=== PATIENT | female | born 1995 | race Caucasian/White ===

== ENCOUNTER 2019-11-29 19:32 | Emergency (ER) | payer BC, SELFPAY ==
--- NOTE | ~2019-11-29 | XR_ITS ---
EXAMINATION: XR chest 2V 11/29/2019 20:52 INDICATION: Chest pain PROCEDURE: 2 view chest COMPARISON: No prior studies for comparison. FINDINGS: The lungs are clear. The cardiomediastinal silhouette is within normal limits. There are no pleural effusions. There is no pneumothorax suspected. IMPRESSION: 1: NO ACUTE CARDIOPULMONARY DISEASE. Reviewed, dictated and finalized at location A. SSRS DEVELOPER
--- NOTE | ~2019-11-29 | NM_ITS ---
NM lung vent and perfusion INDICATION: Shortness of breath. Elevated d-dimer. TECHNIQUE: The patient inhaled aerosolized 8.5 mCi xenon-133. Following ventilation scan, 5.3 mCi Tc 99m MAA was injected intravenously for perfusion images. Multiple images were then acquired. COMPARISON: Chest x-ray dated 11/29/2019 FINDINGS: The comparison chest radiograph demonstrates no pulmonary infiltrates or pleural fluid. Th e perfusion scan is normal. The aerosol in images show uniform deposition throughout the lungs. IMPRESSION: 1: Normal ventilation and perfusion images. Reviewed, dictated and finalized at location A. FILLER
[2019-11-29 19:41] VITALS: BP 124/81; PULSE 76; RESP 11; TEMP 36.8; O2SAT 100
[2019-11-29 19:56] VITALS: PULSE 70
--- NOTE | 2019-11-29 20:07 | ECG_ITS ---
Measurements Intervals Burns Rate: 72 P: 18 CT: 147 QRS: 9 QRSD: 101 T: 12 QT: 381 QTc: 418 Interpretive Statements SINUS RHYTHM WITH SINUS ARRHYTHMIA DELAYED PRECORDIAL R/S TRANSITION BORDERLINE ECG Electronically Signed On 11-30-2019 6:57:08 INKER MACHINE by Keven Moran D.O.
--- NOTE | 2019-11-29 20:26 | ED.CHESTPAIN ---
HPI - Chest Pain General Chief Complaint: Chest Pain Stated Complaint: chest pain Time Seen by Provider: 11/29/19 20:09 Source: patient and RN notes reviewed Mode of arrival: ambulatory Limitations: no limitations History of Present Illness HPI narrative: Pt is a 24 y/o female who presents to the ED with c/o rt sided chest pain starting 3 days ago. She describes her pain as a tightness, and notes that her pain is aggravated with taking a deep breath. Pt also reports intermittent SOB and headache accompanying her pain, but denies any cough, fever, chills, ABD pain, nausea, or vomiting. MD complaint: chest pain Onset (ago): day(s) (3) Pain location: right chest Quality: tightness Exacerbating factors: other (deep breathing) Associated symptoms: dyspnea and other (headache) Related Data Allergies Allergy/AdvReac Type Severity Reaction Status Date / Time shellfish derived Allergy Unknown Unknown Verified 11/29/19 19:56 iohexol Allergy Unknown Verified 11/29/19 19:56 [From contrast - CT, X-RAY] Review of Systems Review of Systems: All systems reviewed & are unremarkable except as noted in HPI and below Constitutional: Constitutional: Denies chills, Denies fever(s) and Reports headache(s) Cardiovascular: Cardiovascular: Reports chest pain (rt sided chest tightness) Respiratory: Respiratory: Denies cough and Reports dyspnea Gastrointestinal: Gastrointestinal: Denies abdominal pain, Denies nausea and Denies vomiting PMFSH Past Medical History Medical History Healthy female adult Surgical History Surgical History No significant past surgical history Family History Family History (Updated 06/08/14 @ 07:13 by DOCTOR UNKNOWN) Mother Depression Grandparent Diabetes mellitus Social History Social History Smoking status: Never smoker Alcohol intake: never Exam Const: General: cooperative, healthy appearing, comfortable, no acute distress, well developed, alert and awake; No confusion Nutritional Appearance: obese Orientation/consciousness: oriented to person, oriented to place, oriented to time, patient oriented x3 and No confusion Limitations: no limitations Chest: Chest palpation & inspection: normal inspection of the chest Resp: Effort & Inspection: normal respiratory effort, able to speak in complete sentences, no respiratory distress and not tachypneic Auscultation: clear to auscultation bilaterally, no crackles, no rales, no rhonchi and no wheezes Cardio: Rate: regular rate Rhythm: regular rhythm GI: Inspection: normal to inspection GI Palp: No abdominal tenderness, Yes Soft to palpation, No Tenderness to palpation present (GI), No Guarding due to palpation present (GI), No Rigid due to palpation and No Rebound tenderness present Auscultation: normal bowel sounds Skin: General skin exam: normal color, no rashes or lesions noted, elasticity normal and turgor normal Neuro: General: oriented to person, oriented to place, oriented to time, patient oriented x3, tone normal, moves all extremities, Normal light touch and pain sensation, no meningeal signs, no focal motor deficits, CN's II-XI intact bilaterally and No confusion Cranial nerves: Yes Equal, round and reactive pupils present Speech: No Abnormal speech present Sensory Exam: No Sensory deficit (Neuro) Extrem: General: normal to inspection, full ROM and capillary refill normal Psych: Appearance: grossly normal and well kempt Mental Status: mental status grossly normal Speech and movement: Normal speech and movement present Affect: normal affect Attitude: cooperative Thought process: Normal thought process present Thought content: Yes Normal thought content present Insight: Good insight present (Psych) Judgement: Good judgement present (Psych) Course Vital Signs Vital signs: Vital Signs
[2019-11-29 20:45] VITALS: BP 142/85; PULSE 70; RESP 18; O2SAT 100
[2019-11-29 20:56] LABS: Basophils Percent Auto 0.1 % (0.2-1.2); Eosinophils Absolute Auto 0.1 K/mm3 (0-0.3); Eosinophils Percent Auto 0.6 % (0-4.4); Hematocrit 39.4 % (37.0-47.0); Hemoglobin 12.8 g/dL (12.0-15.0); Immature Granulocyte Absolute 0.02 K/mm3 (0.00-0.031); Immature Granulocyte Percent A 0.2 % (0-0.5); Lymphocytes Absolute Auto 2.91 K/mm3 (0.9-3.2); Lymphocytes Percent Auto 28.9 % (18.3-44.2); Mean Corpuscular HGB Conc 32.5 g/dl (32-36); Mean Corpuscular Hemoglobin 28.8 pg (26-34); Mean Corpuscular Volume 88.5 fl (80-100); Mean Platelet Volume 9.4 fl (7.4-10.4); Monocytes Absolute Auto 0.5 K/mm3 (0.1-0.6); Monocytes Percent Auto 4.8 % (2.6-8.5); Neutrophils Absolute Auto 6.6 K/mm3 (1.3-6.7); Neutrophils Percent Auto 65.4 % (45.5-73.1); Platelet Count Result 316 k/mm3 (150-375); Red Blood Count 4.45 M/mm3 (4.2-5.4); Red Cell Distribution Width 12.2 % (11.5-14.5); White Blood Count 10.1 K/mm3 (4.5-10.0)
[2019-11-29 21:06] LABS: Partial Thromboplastin Time 28.6 SECONDS (22.3-36.8); Prothrombin Time 12.4 Seconds (11.1-14.7)
[2019-11-29 21:08] LABS: Blood Urea Nitrogen 10 mg/dL (7-17); Calcium 9.5 mg/dL (8.4-10.2); Carbon Dioxide 25 mmol/L (22-30); Chloride 99 mmol/L (98-107); Estimated CRCL calculation 129 ml/min; Estimated Glomerular Filt Rate > 60; Glucose 82 mg/dL (65-105); Potassium 3.7 mmol/L (3.4-5.0); Sodium 138 mmol/L (137-145)
[2019-11-29 21:18] LABS: Troponin I < 0.012 ng/mL (0.000-0.034)
--- NOTE | 2019-11-29 21:19 | PC.NURSE ---
Per EDP Evelina, no dose of Aspirin needed.
[2019-11-29 21:35] LABS: D Dimer 0.51 ug/mL (<0.48)
[2019-11-29 22:31] VITALS: BP 127/71; PULSE 70; RESP 16; O2SAT 99
[2019-11-29 23:58] LABS: Troponin I < 0.012 ng/mL (0.000-0.034)
[2019-11-30 00:14] VITALS: BP 139/76; PULSE 68; RESP 16; O2SAT 99
[2019-11-30 01:08] VITALS: BP 128/64; PULSE 69; RESP 17; TEMP 36.4; O2SAT 100
== END 2019-11-30 01:11 | disposition home or self-care (01) ==
PROVIDERS: General Practice; Emergency Provider Emergency Medicine
DX: R09.1 Pleurisy (principal)
CPT/HCPCS: 36415; 71046; 78582; 80048; 81025; 84484; 85025; 85380; 85610; 85730; 93005; 99284; A9540; A9558

== ENCOUNTER 2022-01-28 08:06 | Emergency (ER) | payer OTHER, SELFPAY ==
--- NOTE | 2022-01-28 08:08 | ED.SKABFB ---
HPI - Skin/Abscess/Foreign Bdy General Chief complaint: Skin/Abscess/Foreign Body Stated complaint: rash Time Seen by Provider: 01/28/22 08:15 Source: patient, RN notes reviewed and old records reviewed Mode of arrival: ambulatory Limitations: no limitations History of Present Illness HPI narrative: 26 yo female who is 27 weeks . Presents to the [facility] with a rash under the right breast for the last 2 to 3 days. Has been washing and drying. States that she is with no complications at this time. No concerns about issues. Feeling the baby move. Patient states that she has been sweating a lot more and noticed this irritation that she describes as burning. MD complaint: rash Related Data Home Medications Medication Instructions Recorded Confirmed escitalopram oxalate 20 mg DIRECTED 01/28/22 01/28/22 Allergies Allergy/AdvReac Type Severity Reaction Status Date / Time shellfish derived Allergy Unknown Unknown Verified 11/29/19 19:56 iohexol Allergy Unknown Verified 11/29/19 19:56 [From contrast - CT, X-RAY] Review of Systems Review of Systems: All systems reviewed & are unremarkable except as noted in HPI and below Constitutional: Constitutional: Reports no additional constitutional complaints, Denies chills, Denies fever(s), Denies headache(s) and Denies weakness Eyes: Eyes: Reports no additional eye complaints and Denies change in vision ENT: Reports system reviewed and no additional complaints, except as documented, Denies dysphagia, Denies dizziness, Denies headache(s), Denies nasal congestion and Denies sore throat Cardiovascular: Cardiovascular: Reports no additional cardiovascular complaints, Denies chest pain, Denies syncope and Denies dyspnea Respiratory: Respiratory: Reports no additional respiratory complaints, Denies chest congestion, Denies cough, Denies dyspnea and Denies wheezing Gastrointestinal: Gastrointestinal: Denies dysphagia Musculoskeletal: Musculoskeletal: Reports no additional musculoskeletal complaints and Denies numbness Integumentary/Breasts: Skin/Breast: Reports as per HPI and Reports rash (Under left breast) Neurologic: Reports system reviewed and no additional complaints, except as documented, Denies dizziness, Denies syncope, Denies headache(s), Denies focal weakness, Denies numbness and Denies weakness Psychiatric: Psychiatric: Reports no additional psychiatric complaints Allergic/Immunologic: Allergic/Immunologic: Reports no additional allergic/immunologic complaints PMFSH Past Medical History Medical History (Updated 01/28/22 @ 08:20 by Sonia Bergeron APRN) Healthy female adult Surgical History Surgical History No significant past surgical history Family History Family History Mother Depression Grandparent Diabetes mellitus Social History Social History Smoking status: Never smoker Alcohol intake: never Comments At the time of my signature, I reviewed and agree with the nursing past medical, surgical, social, and family history. There is no relevant family history pertinent to the patient complaint. Exam Const: General: healthy appearing, no acute distress and alert Nutritional Appearance: well nourished and obese Orientation/consciousness: patient oriented x3 Limitations: no limitations HENMT: Head: normal to inspection Ears: external ears normal Eyes: Pupils: Equal, round and reactive pupils present Neck: Neck: normal visual inspection, no lymphadenopathy and no meningeal signs Chest: Chest palpation & inspection: normal inspection of the chest Resp: Effort & Inspection: normal respiratory effort Auscultation: clear to auscultation bilaterally Cardio: Rate: regular rate Rhythm: regular rhythm Skin: General skin exam: normal color Rashes:
[2022-01-28 08:15] VITALS: BP 129/78; PULSE 78; RESP 16; TEMP 36.4; O2SAT 99
[2022-01-28 08:19] VITALS: BP 129/78; PULSE 78; RESP 16; TEMP 36.4; O2SAT 99
== END 2022-01-28 08:25 | disposition home or self-care (01) ==
PROVIDERS: Emergency Provider Nurse Practitioner
DX: O99.712 Diseases of the skin and subcutaneous tissue complicating pregnancy, second trimester (principal); Z3A.27 27 weeks gestation of pregnancy; B37.2 Candidiasis of skin and nail; O99.342 Other mental disorders complicating pregnancy, second trimester; F32.A Depression, unspecified
CPT/HCPCS: 99213; G0463

== ENCOUNTER 2022-03-26 09:42 | Outpatient (RCR) | payer OTHER, SELFPAY ==
--- NOTE | ~2022-03-26 | US_ITS ---
EXAMINATION: US OB BPP wo non-stress DATE: 03/26/2022 10:59 INDICATION: Abnormal biophysical profile. Third trimester. TECHNIQUE: Real-time pelvic ultrasound was performed. COMPARISON: None. FINDINGS: There is a single living fetus in vertex presentation. The placenta is posterior. heart rate i s 146 beats per minute (bpm). The amniotic fluid index is 27.5 cm, which is high (95th percentile is 24.9 cm). Biophysical profile performed by the technologist: breathing (30 sec sustained breathing in 30 minutes): 2 out of 2 movement (3 gross body movements in 30 minutes): 2 out of 2 tone (one episode of qfbzeca-bybwbeqze-nlswsok limb movement): 2 out of 2 Amniotic fluid pocket (2 cm): 2 out of 2 Total score: 8 out of 8 IMPRESSION: 1. Single living fetus in vertex presentation. 2. Biophysical profile 8 out of 8. 3. Polyhydramnios. Reviewed, dictated and finalized at location B.
[2022-03-26 10:58] VITALS: BP 131/80; PULSE 72
== END 2022-04-24 07:13 | disposition home or self-care (01) ==
LOC: ANHOBOP 09:42
PROVIDERS: Visit Provider Advanced Practice Midwife
DX: O26.03 Excessive weight gain in pregnancy, third trimester (principal); O40.3XX0 Polyhydramnios, third trimester, not applicable or unspecified; Z3A.35 35 weeks gestation of pregnancy
CPT/HCPCS: 59025; 76819

== ENCOUNTER 2022-04-03 14:30 | Outpatient (CLI) | payer OTHER, SELFPAY ==
[2022-04-03] VITALS (21 sets, daily range): BP systolic 121–141; BP diastolic 75–83; PULSE 64–94; O2SAT 96–99
[2022-04-03 15:12] LABS: Basophils Percent Auto 0.2 % (0.2-1.2); Eosinophils Absolute Auto 0.1 K/mm3 (0-0.3); Eosinophils Percent Auto 0.6 % (0-4.4); Hematocrit 33.4 % (37.0-47.0); Hemoglobin 11.2 g/dL (12.0-15.0); Immature Granulocyte Absolute 0.05 K/mm3 (0.00-0.031); Immature Granulocyte Percent A 0.5 % (0-0.5); Lymphocytes Absolute Auto 2.42 K/mm3 (0.9-3.2); Mean Corpuscular HGB Conc 33.5 g/dl (32-36); Mean Corpuscular Hemoglobin 30.9 pg (26-34); Mean Corpuscular Volume 92.3 fl (80-100); Monocytes Absolute Auto 0.8 K/mm3 (0.1-0.6); Monocytes Percent Auto 6.8 % (2.6-8.5); Neutrophils Absolute Auto 7.7 K/mm3 (1.3-6.7); Neutrophils Percent Auto 69.9 % (45.5-73.1); Platelet Count Result 230 k/mm3 (150-375); Red Blood Count 3.62 M/mm3 (4.2-5.4); Red Cell Distribution Width 12.9 % (11.5-14.5)
[2022-04-03 15:25] LABS: Alanine Aminotransferase 13 U/L (6-35); Alkaline Phosphatase 149 U/L (38-126); Anion Gap 6 mmol/L (8-16); Aspartate Amino Transferase 17 U/L (14-36); Bilirubin,Total < 0.1 mg/dL (0.2-1.3); Blood Urea Nitrogen 4 mg/dL (7-17); Calcium 8.4 mg/dL (8.4-10.2); Carbon Dioxide 22 mmol/L (22-30); Chloride 108 mmol/L (98-107); Estimated Glomerular Filt Rate > 60; Glucose 91 mg/dL (65-110); Potassium 3.2 mmol/L (3.4-5.0); Sodium 136 mmol/L (137-145); Uric Acid 3.9 mg/dL (2.5-7.5)
[2022-04-03 16:05] LABS: Creatinine Urine 78.7 mg/dL; Total Protein Urine Random 14 mg/dL; Ur Ttl Prot Creatinine Ratio 0.18 mg/mg (0-0.20)
[2022-04-03 16:14] LABS: Add Urine Microscopic? YES; Appearance Urine Clear (Clear); Bilirubin Urine Negative (Negative); Blood Urine Negative (Negative); Color Urine Yellow (Yellow); Glucose Urine UA Negative (Negative); Ketones Urine Negative (Negative); Leukocyte Esterase Ur Trace LEU/UL (NEGATIVE); Nitrate Urine Negative (Negative); Protein Urine Negative (Negative); Specific Grav Ur 1.015 (1.001-1.035); Urobilinogen Urine 0.2 mg/dL (<2.0)
[2022-04-03 16:19] LABS: Bacteria Urine Trace /hpf; Mucus Urine Rare /lpf; RBC Urine 0-2 /hpf (0-2); Squamous Epithelial Cell Urine Many /hpf (Few); WBC Urine 0-3 /hpf (0-3)
--- NOTE | 2022-04-03 16:32 | PC.NURSE ---
Dr Hester notified of adm c/o of headache, lab results, bp's and reactive tracing with one small vaiable decels noted and tracing reactive after that. Ok to dc home with precautions.
== END 2022-04-03 16:37 | disposition home or self-care (01) ==
LOC: ANHOBOP 14:35 → ANHOBPP 14:36
PROVIDERS: Obstetrics & Gynecology; Visit Provider Obstetrics & Gynecology
DX: O13.9 Gestational [pregnancy-induced] hypertension without significant proteinuria, unspecified trimester (principal); Z3A.00 Weeks of gestation of pregnancy not specified
CPT/HCPCS: 36415; 59025; 80053; 81001; 82570; 84156; 84550; 85025; 87086; 87088; 87147; 99199

== ENCOUNTER 2022-04-09 09:56 | Inpatient (IN) | payer OTHER, SELFPAY ==
[2022-04-09] VITALS (69 sets, daily range): BP systolic 115–160; BP diastolic 65–108; PULSE 61–99; RESP 12–18; TEMP 36.2–36.9; O2SAT 97–100; BMI 50.5
--- NOTE | ~2022-04-09 | US_ITS ---
EXAMINATION: US OB limited w BPP DATE: 04/09/2022 12:40 INDICATION: Hypertension, third trimester TECHNIQUE: Real-time pelvic ultrasound was performed. The interpreting radiologist was not present fo r the study. COMPARISON: None. FINDINGS: There is a single living fetus in vertex presentation. The placenta is posterior. heart rate is 137 beats per minute (bpm). The amniotic fluid index is 28.5 cm high (normal range: 7.5 cm to 24.4 c m). Biophysical profile performed by the technologist: breathing (30 sec sustained breathing in 30 minutes): 2 out of 2 movement (3 gross body movements in 30 minutes): 2 out of 2 tone (one episode of smxuazq-dgzjpusvt-rsebvbx limb movement): 2 out of 2 Amniotic fluid pocket (2 cm): 2 out of 2 Total score: 8 out of 8 IMPRESSION: 1. Single living fetus in vertex presentation. 2. Biophysical profile 8 out of 8. 3. Polyhydramnios. Reviewed, dictated and finalized at location A.
[2022-04-09 11:17] LABS: Basophils Percent Auto 0.1 % (0.2-1.2); Eosinophils Percent Auto 0.3 % (0-4.4); Hematocrit 36.3 % (37.0-47.0); Hemoglobin 12.3 g/dL (12.0-15.0); Immature Granulocyte Absolute 0.08 K/mm3 (0.00-0.031); Immature Granulocyte Percent A 0.6 % (0-0.5); Lymphocytes Absolute Auto 2.61 K/mm3 (0.9-3.2); Lymphocytes Percent Auto 20.4 % (18.3-44.2); Mean Corpuscular HGB Conc 33.9 g/dl (32-36); Mean Corpuscular Hemoglobin 30.8 pg (26-34); Mean Corpuscular Volume 90.8 fl (80-100); Mean Platelet Volume 11.2 fl (7.4-10.4); Monocytes Absolute Auto 0.9 K/mm3 (0.1-0.6); Monocytes Percent Auto 6.7 % (2.6-8.5); Neutrophils Absolute Auto 9.2 K/mm3 (1.3-6.7); Neutrophils Percent Auto 71.9 % (45.5-73.1); Platelet Count Result 263 k/mm3 (150-375); Red Cell Distribution Width 12.6 % (11.5-14.5); White Blood Count 12.8 K/mm3 (4.5-10.0)
[2022-04-09 11:19] LABS: Appearance Urine Clear (Clear); Bilirubin Urine Negative (Negative); Blood Urine Negative (Negative); Color Urine Yellow (Yellow); Glucose Urine UA Negative (Negative); Ketones Urine Negative (Negative); Leukocyte Esterase Ur Negative LEU/UL (Negative); Nitrate Urine Negative (Negative); Protein Urine Negative (Negative); Specific Grav Ur 1.015 (1.001-1.035); Urobilinogen Urine 0.2 mg/dL (<2.0)
[2022-04-09 11:20] LABS: Add Urine Microscopic? NO
[2022-04-09 11:24] LABS: Alanine Aminotransferase 14 U/L (6-35); Albumin Level 3.3 g/dL (3.5-5.1); Alkaline Phosphatase 178 U/L (38-126); Anion Gap 5 mmol/L (8-16); Aspartate Amino Transferase 23 U/L (14-36); Bilirubin,Total 0.2 mg/dL (0.2-1.3); Blood Urea Nitrogen 6 mg/dL (7-17); Carbon Dioxide 24 mmol/L (22-30); Chloride 105 mmol/L (98-107); Estimated Glomerular Filt Rate > 60; Glucose 95 mg/dL (65-110); Potassium 4.1 mmol/L (3.4-5.0); Sodium 134 mmol/L (137-145); Uric Acid 4.1 mg/dL (2.5-7.5)
[2022-04-09 11:30] LABS: Creatinine Urine 79.7 mg/dL; Total Protein Urine Random 17 mg/dL; Ur Ttl Prot Creatinine Ratio 0.21 mg/mg (0-0.20)
--- NOTE | 2022-04-09 11:58 | PC.NURSE ---
Mitchell HODGEM informed of BP's, lab results, Reactive NST with 2 small variable decels down to 110 noted. Order for BPP and ANDREY received.
--- NOTE | 2022-04-09 12:24 | PC.NURSE ---
Pt to U/S per wheelchair.
--- NOTE | 2022-04-09 12:50 | PC.NURSE ---
Pt back from U/S. BPP 05/19. monitor reapplied.
--- NOTE | 2022-04-09 12:55 | PC.NURSE ---
Mitchell HODGEM on unit and updated on BP's. BPP 05/19 and ANDREY 28.5cm. BP's printed out for CNM to take to office to discuss with Dr. Carranza.
--- NOTE | 2022-04-09 13:24 | PC.NURSE ---
Dr. Carranza called to inform us she would like to deliver pt today at 1630 due to elevated BP's at 37 wks gestation and active herpes outbreak. Anesthesia and other personnel informed.
--- NOTE | 2022-04-09 13:35 | PC.NURSE ---
Report given to Viviana Fisher RN and Cristofer Higuera RN.
--- NOTE | 2022-04-09 14:06 | WPDANESEPP ---
Anes - Eval Pre Procedure Procedure: Operation Date: 04/09/22 16:30 Proposed Procedures p Section - Maryam Carranza MD Date/Time: 04/09/22 14:06 Pre Op Diagnosis: nst,bpp,pih labs Patient Data Age: 26 Gender: F Height: 1.7 m Weight: 146.51 kg Last Vital Signs Pulse 90 04/09/22 14:00 BP 131/83 04/09/22 14:00 Allergies Allergy/AdvReac Type Severity Reaction Status Date / Time shellfish derived Allergy Unknown Difficulty Verified 03/31/22 13:43 Breathing iohexol Allergy Anaphylactic Verified 03/31/22 13:43 [From contrast - CT, X-RAY] Shock Home Medications Medication Instructions Recorded Confirmed Type aspirin 81 mg tablet,delayed 162 mg PO DAILY 03/31/22 03/31/22 History release (Ryan Low Dose Aspirin) docosahexaenoic acid 200 mg capsule 200 mg PO 03/31/22 History ferrous sulfate 143 mg (45 mg 143 mg PO DAILY 03/31/22 03/31/22 History iron) tablet,extended release hydroxyzine pamoate 25 mg capsule 25 mg PO BID PRN Anxiety 03/31/22 03/31/22 History (Vistaril) lansoprazole 15 mg capsule,delayed 15 mg PO DAILY 03/31/22 03/31/22 History release sertraline 150 mg capsule 150 mg PO DAILY 03/31/22 03/31/22 History Laboratory Tests 04/09/22 04/09/22 04/09/22 10:55 10:55 10:55 WBC 12.8 K/mm3 H K/mm3 (4.5-10.0) RBC 4.00 M/mm3 L M/mm3 (4.2-5.4) Hgb 12.3 g/dL g/dL (12.0-15.0) Hct 36.3 % L % (37.0-47.0) MCV 90.8 fl fl (80-100) MCH 30.8 pg pg (26-34) MCHC 33.9 g/dl g/dl (32-36) RDW 12.6 % % (11.5-14.5) Plt Count 263 k/mm3 k/mm3 (150-375) MPV 11.2 fl H fl (7.4-10.4) Immature Gran % (Auto) 0.6 % H % (0-0.5) Neut % (Auto) 71.9 % % (45.5-73.1) Lymph % (Auto) 20.4 % % (18.3-44.2) Swain % (Auto) 6.7 % % (2.6-8.5) Eos % (Auto) 0.3 % % (0-4.4) Baso % (Auto) 0.1 % L % (0.2-1.2) Lymph # (Auto) 2.61 K/mm3 K/mm3 (0.9-3.2) Swain # (Auto) 0.9 K/mm3 H K/mm3 (0.1-0.6) Eos # (Auto) 0.0 K/mm3 K/mm3 (0-0.3) Baso # (Auto) 0.0 K/mm3 K/mm3 (0.0-0.1) Abs Immat Gran (auto) 0.08 K/mm3 H K/mm3 (0.00-0.031) Absolute Neuts (auto) 9.2 K/mm3 H K/mm3 (1.3-6.7) Absolute Nucleated RBC 0.0 K/mm3 K/mm3 (0.0-0.012) Nucleated RBC % 0.0 % % (0.0-0.2) Sodium 134 mmol/L L mmol/L (137-145) Potassium 4.1 mmol/L mmol/L (3.4-5.0) Chloride 105 mmol/L mmol/L (98-107) Carbon Dioxide 24 mmol/L mmol/L (22-30) Anion Gap 5 mmol/L L mmol/L (8-16) BUN 6 mg/dL L mg/dL (7-17) Creatinine 0.70 mg/dL mg/dL (0.7-1.0) Estim Creat Clear Calc Not Reportable Estimated GFR > 60 (59 - ) Glucose 95 mg/dL mg/dL (65-110) Uric Acid 4.1 mg/dL mg/dL (2.5-7.5) Calcium 9.0 mg/dL mg/dL (8.4-10.2) Total Bilirubin 0.2 mg/dL mg/dL (0.2-1.3) AST 23 U/L U/L (14-36) ALT 14 U/L U/L (6-35) Alkaline Phosphatase 178 U/L H U/L (38-126) Total Protein 7.0 g/dL g/dL (6.3-8.2) Albumin 3.3 g/dL L g/dL (3.5-5.1) Urine Color Urine Appearance Urine pH Ur Specific Osmond Urine Protein Urine Glucose (UA) Urine Ketones Ur Blood (Man) Urine Nitrate Urine Bilirubin Urine Urobilinogen Leukocyte Esterase Rfl U Random Total Protein 17 mg/dL mg/dL Urine Creatinine 79.7 mg/dL mg/dL Protein/Creat Ratio 2 0.21 mg/mg H mg/mg (0-0.20) 04/09/22 10:55 WBC RBC Hgb Hct MCV MCH MCHC RDW Plt Count MPV Immature Gran % (Auto)
--- NOTE | 2022-04-09 14:22 | LDADM ---
This patient, Fany Merritt, was admitted to OB Post 117 on 04/09/22 at 09:56. Plans for labor, pain management and were discussed with patient. Patient/family oriented to hospital policies and general routines including ID bracelet, bed and alarms, visiting hours, pain management, procedures, bathroom and other care routines, personal items, smoking policy, room service/diet and guest tray routines, infant security routines, and visiting hours. Patient/Family are encouraged to report perceived risks to care and to ask questions if they do not understand what they are told or what they should do. See OBIX for further documentation.
[2022-04-09] MEDS: LACTATED RINGERS 1,000 ML 125 ML IV CONT (15:33)
--- NOTE | 2022-04-09 16:45 | PM.IMHP ---
H&P: HPI History of Present Illness Date/Time: 04/09/22 16:45 Chief Complaint: elevated BP, HSV outbreak Narrative: Fany is a 26yo G1 at 37.0 found to have elevated BPs in office and sent to [facility], where elevated BPs, as high as 150s/100s have continued. Denies SYLVESTER/BV/EP/ She happens to have an active HSV outbreak (not primary), on valtrex and improving. also complicated by COVID at 10w, morbid obesity, and GBS pos. Review of Systems Review of Systems: All systems reviewed & are unremarkable except as noted in HPI and below PMFSH Past Medical History Medical History (Updated 04/09/22 @ 16:47 by Maryam Carranza MD) Healthy female adult Surgical History Surgical History No significant past surgical history Family History Family History (Updated 03/31/22 @ 14:08 by Claudia Flaherty RN) Mother Diabetes mellitus Depression Schizophrenia Grandparent Diabetes mellitus Prostate carcinoma Father Diabetes mellitus Sibling H/O Romel thyroiditis Social History Social History Smoking status: Never smoker Second hand tobacco smoke exposure: No Alcohol intake: never Substance use: former Spiritual care concerns: No Meds Home Medications and Allergies Home Medications Medication Instructions Recorded Confirmed Type aspirin 81 mg tablet,delayed 162 mg PO DAILY 03/31/22 03/31/22 History release (Ryan Low Dose Aspirin) docosahexaenoic acid 200 mg capsule 200 mg PO 03/31/22 History ferrous sulfate 143 mg (45 mg 143 mg PO DAILY 03/31/22 03/31/22 History iron) tablet,extended release hydroxyzine pamoate 25 mg capsule 25 mg PO BID PRN Anxiety 03/31/22 03/31/22 History (Vistaril) lansoprazole 15 mg capsule,delayed 15 mg PO DAILY 03/31/22 03/31/22 History release sertraline 150 mg capsule 150 mg PO DAILY 03/31/22 03/31/22 History Allergies Allergy/AdvReac Type Severity Reaction Status Date / Time shellfish derived Allergy Unknown Difficulty Verified 03/31/22 13:43 Breathing iohexol Allergy Anaphylactic Verified 03/31/22 13:43 [From contrast - CT, X-RAY] Shock Vital Signs Vital Signs - 24 hr 04/09/22 10:19 04/09/22 10:30 04/09/22 10:45 Temperature Pulse Rate 94 85 89 Blood Pressure 128/92 H 125/87 151/97 H Blood Pressure [Left Arm] 04/09/22 11:00 04/09/22 11:15 04/09/22 11:30 Temperature Pulse Rate 83 83 79 Blood Pressure 131/79 130/82 115/74 Blood Pressure [Left Arm] 04/09/22 11:52 04/09/22 12:01 04/09/22 12:08 Temperature Pulse Rate 99 97 88 Blood Pressure 154/108 H 155/87 H 147/81 H Blood Pressure [Left Arm] 04/09/22 12:15 04/09/22 12:51 04/09/22 13:00 Temperature Pulse Rate 87 93 85 Blood Pressure 134/93 H 129/92 H 134/86 Blood Pressure [Left Arm] 04/09/22 13:15 04/09/22 13:30 04/09/22 14:00 Temperature Pulse Rate 84 84 90 Blood Pressure 126/81 126/84 131/83 Blood Pressure [Left Arm] 04/09/22 16:20 04/09/22 10:30 04/09/22 10:30 Temperature 97.1 F L Pulse Rate 88 82 Blood Pressure 151/98 H Blood Pressure [Left Arm] 128/92 H Exam Const: General: no acute distress Resp: Effort & Inspection: normal respiratory effort Auscultation: clear to auscultation bilaterally Cardio: Rate: regular rate Rhythm: regular rhythm GI: GI Palp: Yes Soft to palpation Extrem: General: normal to inspection H&P: Results Labs Labs: Short CBC 04/09/22 Range/Units 10:55 WBC 12.8 H (4.5-10.0) K/mm3 Hgb 12.3 (12.0-15.0) g/dL Hct 36.3 L (37.0-47.0) % Plt Count 263 (150-375) k/mm3 BMP 04/09/22 10:55 Sodium 134 L Potassium 4.1 Chloride 105 Carbon Dioxide 24 BUN 6 L Creatinine 0.70 Glucose 95 Calcium 9.0 Liver Function 04/09/22 Range/Units 10:55 Total Bilirubin 0.2 (0.2-1.3) mg/dL AST 23 (14-36) U/L ALT
[2022-04-09] MEDS: ceFAZolin 3 GM/D5W 100 ML 100 ML IVPB (16:46)
--- NOTE | 2022-04-09 16:48 | WPDHPUPDATE1 ---
History and Physical Update Update Date/Time: 04/09/22 16:48 History and Physical has been reviewed, including an updated exam of the patient. There are NO changes in the patient's condition. Risks, benefits, and alternatives have been discussed and questions answered. Patient agrees to proceed with procedure.
--- NOTE | 2022-04-09 18:01 | PM.OBPRVD ---
OB - Delivery Note Procedure Delivery date: 04/09/22 Procedure: Procedures Operation Date: 04/09/22 16:30 <No data on this case meets the specified criteria> primary low transverse section Events: Gestational Hypertension and Other (genital herpes outbreak) Route of delivery: Specimen: Yes (placenta) Quantitative Blood Loss (ml): 915 Anesthesia type: Spinal Disposition: Floor Complications: none Narrative: The patient was taken to the OR and had her epidural anesthesia dosed adequately. She was placed in dorsal supine position with left lateral tilt. SCDs and zuleta had been placed. She was prepped and draped in the normal sterile fashion. A Pfannensteil skin incision was made and carried through to the underlying layer of fascia. The fascia was incised in the midline and then extended laterally using Stevenson scissors. The muscles were in the midline and the peritoneum was entered bluntly. The peritoneal incision was extended inferiorly and superiorly with care to avoid the bladder. The bladder blade was then inserted, the vesicouterine peritoneum was grasped, incised with Metzenbaum scissors, and a bladder flap created. The bladder blade was reinserted. A low transverse uterine incision was made with a scalpel and extended bluntly. AROM was performed and fluid was noted to be clear. The head was delivered, followed by the remainder of the baby. The baby's oropharynx was suctioned. After 30 seconds, the cord was clamped and cut and the infant was handed off. Cord blood was obtained and the placenta was then removed manually. The uterus was exteriorized. A moist lap sponge was used to curette the endometrium. The uterine incision was then closed with one layer of 0-Vicryl in a running, locking fashion. Good hemostasis was noted. The posterior cul de sac was irrigated with normal saline and cleared of all clot and debris. The uterus was returned to the abdomen. Both lateral gutters were then irrigated. The rectus muscles were inspected and found to be hemostatic. The fascia was reapproximated using 0-Vicryl in running fashion. The subcutaneous tissue was irrigated with normal saline and made hemostatic with Bovie electrocautery. The subcutaneous tissue was reapproximated with a layer of running 2-0 plain gut. The skin was then closed with absorbable oscar. Steri strips and a bandage were applied. The uterus was evacuated. The patient tolerated the procedure very well. All counts were correct. She was taken to the recovery room in good condition. [place] Baby Date of : 04/09/22 Time of : 17:21 Weeks of gestation at delivery: 37 Infant gender: Male Weight (pounds): 7 Weight (ounces): 2 presentation: vertex Placenta delivery description: Manual Removal Cord Vessel Description: 3 Vessels and Delayed Cord Clamping Narrative: apgars pending per nursery
--- NOTE | 2022-04-09 18:59 | P.PNAN_ITS ---
Anes - Eval Final PreProcedure Day of Procedure 04/09/22 16:15 Patient weight: super morbidly obese Heart: regular rate and rhythm Lungs: clear to auscultation and normal air movement Airway: Mallampati scale class II Neurological: alert and oriented Last oral intake: >/= 8 hours ASA classification: III Emergent: no Anesthetic plan: proceed Anesthesia type and monitoring: regional spinal and standard monitoring Results Review: All pre-operative results and documents have been reviewed as part of the pre- operative evaluation. Informed Consent: The patient's anesthetic plan and its attendant risks and benefits were discussed with the patient/family/POA. Questions were solicited and answers provided to the satisfaction of the patient/family/POA.
[2022-04-09] MEDS: MORPHINE SULFATE INJ (*CRX) 10 MG/ML AMP 2 MG IV PUSH ×3 (19:26→20:14)
[2022-04-09] MEDS: OXYTOCIN 30 UNITS/NS 500 ML 30 UNITS/500 ML BAG 125 UNITS IV CONT (20:30)
--- NOTE | 2022-04-09 21:00 | PC.NURSE ---
Patient transferred to post room #291 per stretcher from labor and delivery. Support person present. Oriented to unit, room, information board, rooming in, admission packet and security measures. Patient verbalizes understanding.
[2022-04-09] MEDS: KETOROLAC 30 MG/ML VIAL (*BKC) (21:26)
[2022-04-10] VITALS (7 sets, daily range): BP systolic 125–164; BP diastolic 65–96; PULSE 84–107; RESP 14–20; TEMP 36.4–36.9; O2SAT 97–100
[2022-04-10 05:54] LABS: Rapid Plasma Reagin Non-Reactive (NonReactive)
[2022-04-10 06:07] LABS: Basophils Percent Auto 0.1 % (0.2-1.2); Eosinophils Percent Auto 0.3 % (0-4.4); Hematocrit 30.5 % (37.0-47.0); Hemoglobin 9.9 g/dL (12.0-15.0); Immature Granulocyte Absolute 0.07 K/mm3 (0.00-0.031); Immature Granulocyte Percent A 0.5 % (0-0.5); Lymphocytes Absolute Auto 2.45 K/mm3 (0.9-3.2); Lymphocytes Percent Auto 16.7 % (18.3-44.2); Mean Corpuscular HGB Conc 32.5 g/dl (32-36); Mean Corpuscular Hemoglobin 30.8 pg (26-34); Mean Platelet Volume 11.3 fl (7.4-10.4); Monocytes Absolute Auto 0.9 K/mm3 (0.1-0.6); Monocytes Percent Auto 5.8 % (2.6-8.5); Neutrophils Absolute Auto 11.2 K/mm3 (1.3-6.7); Neutrophils Percent Auto 76.6 % (45.5-73.1); Platelet Count Result 221 k/mm3 (150-375); Red Blood Count 3.21 M/mm3 (4.2-5.4); Red Cell Distribution Width 12.7 % (11.5-14.5); White Blood Count 14.6 K/mm3 (4.5-10.0)
[2022-04-10] MEDS: IBUPROFEN 600 MG TABLET PO ×3 (07:50→19:54)
--- NOTE | 2022-04-10 08:09 | PM.OBPNVD ---
OB - PN: Subj Subjective Date/time seen: 04/10/22 08:09 s/p primary delivery for hsv outbreak, day 1 no current complaints OB - PN: Obj Data Labs CBC & Chem 7: 04/10/22 04:47 04/09/22 10:55 Labs: Laboratory Results - last 24 hr 04/09/22 04/09/22 04/09/22 10:55 10:55 10:55 WBC 12.8 H RBC 4.00 L Hgb 12.3 Hct 36.3 L MCV 90.8 MCH 30.8 MCHC 33.9 RDW 12.6 Plt Count 263 MPV 11.2 H Immature Gran % (Auto) 0.6 H Neut % (Auto) 71.9 Lymph % (Auto) 20.4 [place] % (Auto) 6.7 Eos % (Auto) 0.3 Baso % (Auto) 0.1 L Lymph # (Auto) 2.61 [place] # (Auto) 0.9 H Eos # (Auto) 0.0 Baso # (Auto) 0.0 Abs Immat Gran (auto) 0.08 H Absolute Neuts (auto) 9.2 H Absolute Nucleated RBC 0.0 Nucleated RBC % 0.0 Sodium 134 L Potassium 4.1 Chloride 105 Carbon Dioxide 24 Anion Gap 5 L BUN 6 L Creatinine 0.70 Estim Creat Clear Calc Not Reportable Estimated GFR > 60 Glucose 95 Uric Acid 4.1 Calcium 9.0 Total Bilirubin 0.2 AST 23 ALT 14 Alkaline Phosphatase 178 H Total Protein 7.0 Albumin 3.3 L Urine Color Urine Appearance Urine pH Ur Specific [place] Urine Protein Urine Glucose (UA) Urine Ketones Ur Blood (Man) Urine Nitrate Urine Bilirubin Urine Urobilinogen Leukocyte Esterase Rfl U Random Total Protein 17 Urine Creatinine 79.7 Protein/Creat Ratio 2 0.21 H RPR Blood Type Antibody Screen 04/09/22 04/09/22 04/09/22 10:55 14:30 14:30 WBC RBC Hgb Hct MCV MCH MCHC RDW Plt Count MPV Immature Gran % (Auto) Neut % (Auto) Lymph % (Auto) [place] % (Auto) Eos % (Auto) Baso % (Auto) Lymph # (Auto) [place] # (Auto) Eos # (Auto) Baso # (Auto) Abs Immat Gran (auto) Absolute Neuts (auto) Absolute Nucleated RBC Nucleated RBC % Sodium Potassium Chloride Carbon Dioxide Anion Gap BUN Creatinine Estim Creat Clear Calc Estimated GFR Glucose Uric Acid Calcium Total Bilirubin AST ALT Alkaline Phosphatase Total Protein Albumin Urine Color Yellow Urine Appearance Clear Urine pH 7.0 Ur Specific [place] 1.015 Urine Protein Negative Urine Glucose (UA) Negative Urine Ketones Negative Ur Blood (Man) Negative Urine Nitrate Negative Urine Bilirubin Negative Urine Urobilinogen 0.2 Leukocyte Esterase Rfl Negative U Random Total Protein Urine Creatinine Protein/Creat Ratio 2 RPR Non-reactive Blood Type A Positive Antibody Screen Negative 04/10/22 04:47 WBC 14.6 H RBC 3.21 L Hgb 9.9 L Hct 30.5 L MCV 95.0 MCH 30.8 MCHC 32.5 RDW 12.7 Plt Count 221 MPV 11.3 H Immature Gran % (Auto) 0.5 Neut % (Auto) 76.6 H Lymph % (Auto) 16.7 L [place] % (Auto) 5.8 Eos % (Auto) 0.3 Baso % (Auto) 0.1 L Lymph # (Auto) 2.45 [place] # (Auto) 0.9 H Eos # (Auto) 0.0 Baso # (Auto) 0.0 Abs Immat Gran (auto) 0.07 H Absolute Neuts (auto) 11.2 H Absolute Nucleated RBC 0.0 Nucleated RBC % 0.0 Sodium Potassium Chloride Carbon Dioxide Anion Gap BUN Creatinine Estim Creat Clear Calc Estimated GFR Glucose Uric Acid Calcium Total Bilirubin AST ALT Alkaline Phosphatase Total Protein Albumin Urine Color Urine Appearance Urine pH Ur Specific [place] Urine Protein Urine Glucose (UA) Urine Ketones Ur Blood (Man) Urine Nitrate Urine Bilirubin Urine Urobilinogen Leukocyte Esterase Rfl U Random Total Protein Urine Creatinine Protein/Creat Ratio 2 RPR Blood Type Antibody Screen Imaging Radiologist's impression: Impressions Obstetrics US/Biophysical Profile 04/09/22 12:55 IMPRESSION: 1. Single living fetus in vertex presentation. 2. Biophysical profile 8 out of 8. 3. Polyh
[2022-04-10] MEDS: POLYSACCHARIDE IRON COMPLEX 150 MG CAPSULE PO ×2 (08:23→17:41)
[2022-04-10] MEDS: HYDROcodone/acetaminophen (*CRX) 5-325 MG TABLET 1 TAB PO ×4 (08:24→19:53)
[2022-04-10] MEDS: valACYclovir HCL 500 MG TABLET 1000 MG PO ×2 (08:24→21:11)
[2022-04-10] MEDS: SERTRALINE HCL 50 MG TABLET 150 MG PO (08:25)
[2022-04-10] MEDS: MULTIVIT/MIN/PREN/FOL AC/IRON TABLET 1 TAB PO (08:26)
[2022-04-10] MEDS: DOCUSATE SODIUM 100 MG CAPSULE PO ×2 (08:26→17:41)
--- NOTE | 2022-04-10 10:01 | WPDANLDPN2 ---
Anes-Prog Note L&D Date/Time: 04/10/22 10:01 Comfortable throughout: section Neuraxial method: spinal Epidural/Spinal procedure site: clean & non-tender Neuro status: Neuro function grossly intact. Cardiovascular status: normal Airway patency: baseline Vital Signs: Last Vital Signs Temp 36.9 C 04/10/22 04:45 Pulse 84 04/10/22 04:45 Resp 14 04/10/22 04:45 BP 149/87 H 04/10/22 04:45 Pulse Ox 98 04/10/22 04:45 O2 Del Method Room Air 04/09/22 20:20 Pain score (VAS): 2 I/O: Intake & Output 04/09/22 04/10/22 04/10/22 23:59 07:59 15:59 Intake Total 400 Output Total 1528 Balance -1128 Patient feedback: Patient satisfied with anesthetic care.
--- NOTE | 2022-04-10 10:02 | WPDANLDNPN2 ---
Anes-Prog Note L&D-Neuraxial Date/Time: 04/10/22 10:02 Neuraxial medications: intrathecal PF morphine Opiod-related complaints: none Patient feedback: Patient satisfied with post-operative pain management.
[2022-04-10] MEDS: SIMETHICONE 80 MG TAB.CHEW PO ×3 (13:14→19:53)
[2022-04-10] MEDS: LANOLIN (LANSINOH) 7.5 GM CREAM 1 APPLIC TOPICAL (13:14)
--- NOTE | 2022-04-10 16:37 | PC.NURSE ---
[phone] Primary RN is present in room and reports mother is on a plan. had attempted to breastfeed with a nipple shield. Mom pumped 1 ml of colostrum. At 0800 had been fed the 1 ml of colostrum and 15 mls of formula. was placed skin to skin on mom. Education reviewed for different styles of stimulating for wakefulness to breastfeed. did not demonstrate adequate feeding efforts at the breast. is sleepy and reluctant. Breast pump provided prior to RN shift due to ineffective feedings. Instructions given on cleaning, care, usage, that there should be no pain, pumping schedule for milk production, collection, and storage of human milk to mommy. Parents are encouraged to record pumping schedule on the feeding sheet. was fed by RN the 1 ml of BM using a syringe that was pumped earlier. Patient was assessed for correct placement, flange size, to pump for comfort and nipple stretching/stimulation for adequate milk production every 3 hours (8 times in 24 hours). Mommy needed max assistance with burping and bottle feeding infant. Mom voiced understanding of the education shared along with mom and baby guide for additional resource information. Reported to the primary RN.
[2022-04-10] MEDS: HYDROcodone/acetaminophen (*CRX) 10-325 MG TABLET 1 TAB PO (23:55)
[2022-04-11 04:40] VITALS: BP 141/87; PULSE 91; RESP 14; TEMP 37.1; O2SAT 97
--- NOTE | 2022-04-11 07:40 | PM.OBPNVD ---
OB - PN: Subj Subjective Date/time seen: 04/11/22 07:40 s/p primary section for HSV, day 2 OB - PN: Obj Data Labs CBC & Chem 7: 04/10/22 04:47 04/09/22 10:55 OB - PN A/P Plan day: 2 Time Spent With Patient Time: Total time spent is greater than 50% in coordination of care (as documented) at patient's floor/unit and/or counseling patient: Review of Systems Review of Systems: All systems reviewed & are unremarkable except as noted in HPI and below Exam Narrative: incision CDI Const: General: cooperative, healthy appearing and comfortable
[2022-04-11 08:05] VITALS: BP 143/92; PULSE 99; RESP 18; TEMP 36.6; O2SAT 97
[2022-04-11] MEDS: BISACODYL 10 MG SUPPOSITORY RECTAL (08:22)
[2022-04-11] MEDS: POLYSACCHARIDE IRON COMPLEX 150 MG CAPSULE PO ×2 (08:23→16:08)
[2022-04-11] MEDS: HYDROcodone/acetaminophen (*CRX) 10-325 MG TABLET 1 TAB PO (08:23)
[2022-04-11] MEDS: valACYclovir HCL 500 MG TABLET 1000 MG PO ×2 (08:23→20:12)
[2022-04-11] MEDS: DOCUSATE SODIUM 100 MG CAPSULE PO ×2 (08:23→16:08)
[2022-04-11] MEDS: SERTRALINE HCL 50 MG TABLET 150 MG PO (08:23)
[2022-04-11] MEDS: MULTIVIT/MIN/PREN/FOL AC/IRON TABLET 1 TAB PO (08:23)
[2022-04-11] MEDS: IBUPROFEN 600 MG TABLET PO ×3 (08:23→23:17)
[2022-04-11 12:19] VITALS: BP 142/77; PULSE 100; RESP 16; TEMP 37; O2SAT 97
--- NOTE | 2022-04-11 14:48 | PC.NURSE ---
1355 - RN attempted to check in with patient today to assess how the feeding plan was going. There was a do not disturb sign on the door. Primary RN reported that parents needed sleep and was bottle fed by RN at the desk.
[2022-04-11 16:00] VITALS: BP 135/81
[2022-04-11] MEDS: HYDROcodone/acetaminophen (*CRX) 5-325 MG TABLET 1 TAB PO ×3 (16:25→23:16)
[2022-04-11 19:00] VITALS: BP 148/98; PULSE 102; RESP 16; TEMP 36.8
[2022-04-12 05:00] VITALS: BP 154/104; PULSE 89
--- NOTE | 2022-04-12 08:00 | PC.NURSE ---
PT introductions made and plan of care discussed per post op c section, pain management, breast/bottle feeding, pumping, daily care activities and pending discharge to home. PT received such instructions per one to one discussion, mom baby care guide, and demonstrations this shift. Mom and significant other both recipients of such instructions. no barriers to learning identified at this time. PT verbalized understanding of such care.
--- NOTE | 2022-04-12 08:45 | PM.OBPNVD ---
OB - PN: Subj Subjective Date/time seen: 04/12/22 08:45 Patient comments: no complaints, pain well controlled, incisional pain, tolerating diet and flatus present OB - PN: Obj Data Labs CBC & Chem 7: 04/10/22 04:47 04/09/22 10:55 OB - PN A/P Plan day: 3 Plan: routine care, discharge home and other Comments: Incision check in one week. Given precautions Time Spent With Patient Time: Total time spent is greater than 50% in coordination of care (as documented) at patient's floor/unit and/or counseling patient: Exam Const: General: comfortable, no acute distress and alert Resp: Effort & Inspection: normal respiratory effort Auscultation: no crackles, no rales and no rhonchi Cardio: Rate: regular rate Heart sounds: no click, no murmurs and no rubs GI: Inspection: non-distended GI Palp: No Tenderness to palpation present (GI) Auscultation: normal bowel sounds Other: Incision - CDI Extrem: General: normal to inspection, no pedal edema and no calf tenderness
--- NOTE | 2022-04-12 08:45 | PM.OBDSVD ---
DS: Admitting Diagnosis Discharge Date 04/12/22 Admitting Diagnosis term DS: Discharge Diagnosis Discharge Diagnosis (1) PIH ( induced hypertension): Code(s): O13.9 - Gestational [-induced] hypertension without significant proteinuria, unspecified trimester Status: Acute OB - DS: Summary OB Procedures : PIH Mgmt OB Procedures Intrapartum: OB Procedures: : None Peripartum Data Procedures: Procedures Operation Date: 04/09/22 16:30 Actual Procedure Side Surgeon p Section Maryam Carranza MD Time Spent with Patient Time attestation: Total time spent providing and/or coordinating discharge services: DS: Data Data Completed and Pending Pending studies at discharge: Pending at discharge 04/09/22 17:23 Surgical [PTH] Routine Discharge Plan Discharge Attending physician on discharge: Cordell Hester Discharging Clinician: Cordell Hester Patient Disposition: Home, Self-Care Activity: pelvic rest Diet: regular Discharge Instructions: Education: Mom and Baby Guide Given to: Mother Follow-Up: Call your delivering provider's office for an appointment to be seen in: 1 Week Mom and baby should come to the [facility] for the follow-up appointment. Appointment Date/Time: April 14, 2022 at 1:30 pm What to expect at your follow-up visit: Blood Pressure Check Call [phone] if you are unable to keep your appointment time. BREAST CARE: * Wear a snug supportive bra. * For engorgement discomfort: Breast Feeding: * Apply warm moist washcloths * Express milk as needed to relieve engorgement * Wear loose clothing * For sore nipples: * Identify correct latch-on * Apply warm moist washcloths before and after nursing * Air dry nipples after nursing * May apply Lansinoh cream to nipples ABDOMINAL INCISION: (if applicable) * Allow incision to air dry * Do NOT use lotions for powders on your incision * When showering, allow soap and water to run over the incision, but do not wash incision PERINEAL CARE: * Until bleeding stops, use your antonio bottle after urinating * Change your pad frequently throughout the day * No tub baths until seen by your physician - You may shower ACTIVITY: * Rest as much as possible. * Do not exercise or lift anything heavier than your baby (such as laundry or other children.) * Avoid stairs or driving as much as possible. * Do not put anything into the vagina. No douching, tampons, or sexual activity until seen by physician. NOTIFY PHYSICIAN IF YOU HAVE ANY QUESTIONS OR IF ANY OF THE FOLLOWING SYMPTOMS OCCUR: * If your incision becomes red, swollen, or more painful than what you have experienced in the hospital. * If your vaginal bleeding becomes foul smelling. * If your vaginal bleeding becomes more heavy than a period or if your bleeding changes from pink to bright red. However, you may pass an occasional walnut-sized clot once or twice for the first week . * If you experience a sharp, shooting pain in you calves. * If you discover a hard, reddened area on your breast or if you experience flu-like symptoms. * If you have a fever of 100.4 or greater DIET: * Eat regular, well-balanced meals. * Drink plenty of fluids daily. If , drink to thirst. Patient Instructions: Antibiotic Form Stand Alone Forms: General Discharge Information Follow-up/Referrals: Cordell Hester MD [Physician] - Discharge Medications: New hydrocodone-acetaminophen 5-325 mg tablet 1 tablet PO Q4H PRN (Reason: pain) Qty: 25 0RF Continued aspirin [Ryan Low Dose Aspirin] 81 mg Tablet,Delayed Release (Dr/Ec) 162 mg PO DAILY hydroxyzine pamoate [Vistaril] 25 mg Capsule 25 mg PO BID PRN (Reason: Anxiety) docosahexaenoic acid 200 mg Capsule 200 mg PO DAILY
[2022-04-12 10:00] VITALS: BP 149/94; PULSE 104; RESP 16; TEMP 37.2; O2SAT 97
[2022-04-12] MEDS: HYDROcodone/acetaminophen (*CRX) 5-325 MG TABLET 1 TAB PO ×2 (10:06→13:50)
[2022-04-12] MEDS: POLYSACCHARIDE IRON COMPLEX 150 MG CAPSULE PO (10:06)
[2022-04-12] MEDS: IBUPROFEN 600 MG TABLET PO (10:07)
[2022-04-12] MEDS: MULTIVIT/MIN/PREN/FOL AC/IRON TABLET 1 TAB PO (10:09)
[2022-04-12] MEDS: DOCUSATE SODIUM 100 MG CAPSULE PO (10:09)
[2022-04-12] MEDS: valACYclovir HCL 500 MG TABLET 1000 MG PO (10:09)
[2022-04-12] MEDS: SERTRALINE HCL 50 MG TABLET 150 MG PO (10:10)
--- NOTE | 2022-04-12 12:30 | PC.NURSE ---
PT received discharge instructions per protocol and verbalized understanding of such care.
--- NOTE | 2022-04-12 13:50 | PC.NURSE ---
PT discharged to home ambulatory accompanied by significant other and and taken to waiting car. Follow up appts confirmed
[2022-04-14 13:45] VITALS: BP 154/86; PULSE 95; RESP 20; TEMP 37.2; O2SAT 99
== END 2022-04-12 13:50 | disposition home or self-care (01) | DRG 540 ==
LOC: ANHOBOP 10:03 → ANHOBPP 10:03 → ANHOBOP 14:04 → ANHOBPP 14:04 → ANHOB2 21:01
PROVIDERS: Advanced Practice Midwife; Admitting Provider Obstetrics & Gynecology; Visit Provider Obstetrics & Gynecology
PROC: 10D00Z1 Extraction of Products of Conception, Low, Open Approach (ICD-10-PCS; CPT 59514; principal; 2022-04-09 16:30)
DX: O98.52 Other viral diseases complicating childbirth (principal); B00.9 Herpesviral infection, unspecified; O99.824 Streptococcus B carrier state complicating childbirth; O69.81X0 Labor and delivery complicated by cord around neck, without compression, not applicable or unspecified; Z3A.37 37 weeks gestation of pregnancy; Z37.0 Single live birth; O13.4 Gestational [pregnancy-induced] hypertension without significant proteinuria, complicating childbirth; O99.214 Obesity complicating childbirth; E66.01 Morbid (severe) obesity due to excess calories; Z86.16 Personal history of COVID-19
CPT/HCPCS: 36415; 76815; 76819; 80053; 81003; 82570; 84156; 84550; 85025; 86592; 86850; 86900; 86901; 88307; A9270; J0131; J0690; J1885; J2270; J2274; J2405; J2590; J7120

== ENCOUNTER 2022-04-14 14:12 | Outpatient (CLI) | payer OTHER, SELFPAY ==
[2022-04-14] VITALS (7 sets, daily range): BP systolic 121–141; BP diastolic 77–87; PULSE 75–87
[2022-04-14 15:06] LABS: Basophils Percent Auto 0.1 % (0.2-1.2); Eosinophils Absolute Auto 0.1 K/mm3 (0-0.3); Eosinophils Percent Auto 1.8 % (0-4.4); Hematocrit 26.9 % (37.0-47.0); Hemoglobin 8.9 g/dL (12.0-15.0); Immature Granulocyte Absolute 0.05 K/mm3 (0.00-0.031); Immature Granulocyte Percent A 0.7 % (0-0.5); Lymphocytes Absolute Auto 1.79 K/mm3 (0.9-3.2); Lymphocytes Percent Auto 24.7 % (18.3-44.2); Mean Corpuscular HGB Conc 33.1 g/dl (32-36); Mean Corpuscular Hemoglobin 30.8 pg (26-34); Mean Corpuscular Volume 93.1 fl (80-100); Mean Platelet Volume 9.1 fl (7.4-10.4); Monocytes Absolute Auto 0.6 K/mm3 (0.1-0.6); Monocytes Percent Auto 8.4 % (2.6-8.5); Neutrophils Absolute Auto 4.7 K/mm3 (1.3-6.7); Neutrophils Percent Auto 64.3 % (45.5-73.1); Platelet Count Result 261 k/mm3 (150-375); Red Blood Count 2.89 M/mm3 (4.2-5.4); Red Cell Distribution Width 12.6 % (11.5-14.5); White Blood Count 7.3 K/mm3 (4.5-10.0)
[2022-04-14 15:20] LABS: Alanine Aminotransferase 20 U/L (6-35); Albumin Level 3.2 g/dL (3.5-5.1); Alkaline Phosphatase 127 U/L (38-126); Anion Gap 1 mmol/L (8-16); Aspartate Amino Transferase 28 U/L (14-36); Bilirubin,Total 0.2 mg/dL (0.2-1.3); Blood Urea Nitrogen 6 mg/dL (7-17); Calcium 8.4 mg/dL (8.4-10.2); Carbon Dioxide 29 mmol/L (22-30); Chloride 105 mmol/L (98-107); Estimated Glomerular Filt Rate > 60; Glucose 85 mg/dL (65-110); Potassium 3.8 mmol/L (3.4-5.0); Sodium 135 mmol/L (137-145); Uric Acid 3.8 mg/dL (2.5-7.5)
--- NOTE | 2022-04-14 15:30 | PC.NURSE ---
Dr. Hester notified of pt complaints of headache, elevated blood pressure, and lab values. Orders received to D/C.
== END 2022-04-14 15:47 | disposition home or self-care (01) ==
LOC: ANHOBOP 14:18 → ANHOBPP 04-21 09:40
PROVIDERS: Visit Provider Obstetrics & Gynecology
DX: O13.9 Gestational [pregnancy-induced] hypertension without significant proteinuria, unspecified trimester (principal); Z3A.00 Weeks of gestation of pregnancy not specified
CPT/HCPCS: 36415; 80053; 84550; 85025; 99199

== ENCOUNTER 2023-06-12 15:59 | Emergency (ER) | payer OTHER, SELFPAY ==
--- NOTE | 2023-06-12 16:08 | ED.SKABFB ---
HPI - Skin/Abscess/Foreign Bdy General Chief complaint: Skin/Abscess/Foreign Body Stated complaint: Cyst on back of ear Time Seen by Provider: 06/12/23 16:20 Source: patient, RN notes reviewed and old records reviewed Mode of arrival: ambulatory Limitations: no limitations History of Present Illness HPI narrative: 27-year-old female presents to the [facility] with complaints of a cyst that she thinks might be infected to the posterior mid left ear. States that she thought was a pimple a couple weeks ago has been ?trying to pop it. ? Onset (ago): week(s) Related Data Home Medications Medication Instructions Recorded Confirmed sertraline 150 mg capsule 150 mg PO DAILY 03/31/22 06/12/23 valacyclovir 500 mg tablet 500 mg PO BID 04/09/22 06/12/23 lamotrigine 200 mg tablet 200 mg DIRECTED 06/12/23 06/12/23 Allergies Allergy/AdvReac Type Severity Reaction Status Date / Time shellfish derived Allergy Severe Difficulty Verified 04/09/22 19:24 Breathing iohexol Allergy Anaphylactic Verified 03/31/22 13:43 [From contrast - CT, X-RAY] Shock Review of Systems Review of Systems: All systems reviewed & are unremarkable except as noted in HPI and below Constitutional: Constitutional: Reports no additional constitutional complaints Eyes: Eyes: Reports no additional eye complaints ENT: Reports as per HPI Cardiovascular: Cardiovascular: Reports no additional cardiovascular complaints, Denies chest pain and Denies dyspnea Respiratory: Respiratory: Reports no additional respiratory complaints, Denies chest congestion, Denies cough and Denies dyspnea Gastrointestinal: Gastrointestinal: Reports no additional gastrointestinal complaints, Denies abdominal pain, Denies nausea and Denies vomiting Musculoskeletal: Musculoskeletal: Reports no additional musculoskeletal complaints Integumentary/Breasts: Skin/Breast: Reports system reviewed and no additional complaints, except as docu Neurologic: Reports system reviewed and no additional complaints, except as documented Psychiatric: Psychiatric: Reports no additional psychiatric complaints Allergic/Immunologic: Allergic/Immunologic: Reports no additional allergic/immunologic complaints [facility] Past Medical History Medical History Healthy female adult Surgical History Surgical History No significant past surgical history Family History Family History Mother Diabetes mellitus Depression Schizophrenia Grandparent Diabetes mellitus Prostate carcinoma Father Diabetes mellitus Sibling H/O Romel thyroiditis Social History Social History Smoking status: Never smoker Second hand tobacco smoke exposure: No Alcohol intake: never Substance use: former Spiritual care concerns: No Comments At the time of my signature, I reviewed and agree with the nursing past medical, surgical, social, and family history. There is no relevant family history pertinent to the patient complaint. Exam Const: General: cooperative, healthy appearing, comfortable, no acute distress, well developed, alert and well nourished Nutritional Appearance: well nourished and obese Orientation/consciousness: patient oriented x3 Limitations: no limitations HENMT: Head: normal to inspection Ears: hearing grossly normal bilaterally, TM's normal bilaterally, EAC's normal and external ear abnormal other (Posterior mid ear, small hematoma measuring approximately 0.5 cm diameter. No erythema. No fluctuance) Outer ear/TM images: 1. Posterior aspect small hematoma without increased erythema, pain. Face/Nose/Sinus: Normal external nose present, Normal nares present, Normal nasal mucous membranes and turbinates present and normal facial exam Face and sinus: normal facia
[2023-06-12 16:10] VITALS: BP 112/74; PULSE 66; RESP 16; TEMP 36.7; O2SAT 98
== END 2023-06-12 16:30 | disposition home or self-care (01) ==
PROVIDERS: Emergency Provider Nurse Practitioner; PCP Nurse Practitioner Family
DX: S00.432A Contusion of left ear, initial encounter (principal)
CPT/HCPCS: 99212; G0463

== ENCOUNTER 2023-07-27 08:13 | Emergency (ER) | payer OTHER, SELFPAY ==
--- NOTE | 2023-07-27 08:16 | ED.URI ---
HPI - URI/Sore Throat General Chief Complaint: Upper Respiratory Infection Stated Complaint: SORE THROAT/TIRED Time Seen by Provider: 07/27/23 08:15 Source: patient Mode of arrival: ambulatory Limitations: no limitations History of Present Illness HPI Narrative: Patient is a 27-year-old female who presents with 3 days of sore throat and fatigue. Patient took a Benadryl last night but has no other treatment. Denies any fever, chills, ear pain, cough, nausea, vomiting. Related Data Home Medications Medication Instructions Recorded Confirmed ergocalciferol (vitamin D2) 1,250 1,250 mcg PO WEEKLY 07/27/23 07/27/23 mcg (50,000 unit) capsule ibuprofen 600 mg tablet 600 mg PO DIRECTED 07/27/23 07/27/23 lamotrigine 150 mg tablet 150 mg PO HS 07/27/23 07/27/23 sertraline 100 mg tablet 100 mg PO HS 07/27/23 07/27/23 Allergies Allergy/AdvReac Type Severity Reaction Status Date / Time shellfish derived Allergy Severe Difficulty Verified 07/27/23 08:59 Breathing iohexol Allergy Anaphylactic Verified 07/27/23 08:59 [From contrast - CT, X-RAY] Shock Review of Systems Review of Systems: All systems reviewed & are unremarkable except as noted in HPI and below Constitutional: Constitutional: Denies body ache(s), Denies chills, Reports fatigue, Denies fever(s), Denies headache(s), Denies malaise and Denies weakness Eyes: Eyes: Denies blurry vision, Denies itchy eyes and Denies loss of vision ENT: Denies otalgia, Denies headache(s), Denies nasal congestion, Denies sinus pain and Reports sore throat Cardiovascular: Cardiovascular: Denies chest pain, Denies irregular heart rhythm and Denies dyspnea Respiratory: Respiratory: Denies cough and Denies dyspnea Gastrointestinal: Gastrointestinal: Denies abdominal pain, Denies diarrhea, Denies nausea and Denies vomiting Musculoskeletal: Musculoskeletal: Denies back pain, Denies myalgias and Denies arthralgias Integumentary/Breasts: Skin/Breast: Denies pruritus and Denies rash Neurologic: Denies headache(s), Denies loss of vision and Denies weakness Psychiatric: Psychiatric: Reports no additional psychiatric complaints Endocrine: Endocrine: Denies fatigue Allergic/Immunologic: Allergic/Immunologic: Denies itchy eyes PMFSH Past Medical History Medical History Healthy female adult Surgical History Surgical History No significant past surgical history Family History Family History Mother Diabetes mellitus Depression Schizophrenia Grandparent Diabetes mellitus Prostate carcinoma Father Diabetes mellitus Sibling H/O Romel thyroiditis Social History Social History Smoking status: Never smoker Second hand tobacco smoke exposure: No Alcohol intake: never Substance use: former Spiritual care concerns: No Comments At time of signature, agree with nursing past medical, surgical, social and family history. There is no relevant family history pertinent to the presenting complaint. Exam Const: General: cooperative, healthy appearing, comfortable, no acute distress and well nourished Nutritional Appearance: well nourished Orientation/consciousness: patient oriented x3 Limitations: no limitations HENMT: Head: normal to inspection, normocephalic and atraumatic Ears: hearing grossly normal bilaterally, external ears normal, TM's normal bilaterally, EAC's normal and no periauricular adenopathy Face/Nose/Sinus: Normal external nose present, Abnormal mucous membranes and turbinates present erythematous bilateral and diffuse, normal facial exam, sinuses nontender and face symmetric Face and sinus: normal facial exam, sinuses nontender and face symmetric Mouth: Yes Normal oral and palatal mucosa present, Yes lip normal, Yes tongue
[2023-07-27 08:28] VITALS: BP 113/80; PULSE 78; RESP 18; TEMP 37; O2SAT 99
== END 2023-07-27 09:09 | disposition home or self-care (01) ==
PROVIDERS: Emergency Provider Nurse Practitioner Family; PCP Nurse Practitioner Family
DX: J02.9 Acute pharyngitis, unspecified (principal); F41.9 Anxiety disorder, unspecified; F31.9 Bipolar disorder, unspecified
CPT/HCPCS: 87081; 87880; 99213; G0463

== ENCOUNTER 2024-11-29 18:01 | Emergency (ER) | payer OTHER, SELFPAY ==
--- NOTE | 2024-11-29 18:02 | ED_ITS ---
HPI - URI/Sore Throat General Chief Complaint: Upper Respiratory Infection Stated Complaint: TIRED/BODY ACHES/FEVER/COUGH Source: patient and RN notes reviewed Mode of arrival: ambulatory Limitations: no limitations History of Present Illness HPI Narrative: Patient is a 29-year-old female who presents to the [facility] with complaints of fatigue, body aches, fever, and cough for the past 2 days. She endorses a frequent nonproductive cough. Denies chest pain or shortness of breath. She reports intermittent fevers over the last 2 days. She is currently afebrile. Denies ear pain or sore throat. Her respirations are unlabored. Unsure of any known sick contacts. Related Data Home Medications ?Medication ?Instructions ?Recorded ?Confirmed ?Last Taken ?Type ergocalciferol (vitamin D2) 1,250 1,250 mcg PO WEEKLY 07/27/23 07/27/23 Unknown History mcg (50,000 unit) capsule lamotrigine 150 mg tablet 150 mg PO HS 07/27/23 07/27/23 Unknown History sertraline 100 mg tablet 100 mg PO HS 07/27/23 07/27/23 Unknown History Allergies Allergy/AdvReac Type Severity Reaction Status Date / Time shellfish derived Allergy Severe Difficulty Verified 11/29/24 18:05 Breathing iohexol (From contrast - CT, Allergy Anaphylactic Verified 11/29/24 18:05 X-RAY) Shock Review of Systems Review of Systems: CONSTITUTIONAL: Reports fever, chills, and sweats. Reports fatigue. EYES: Denies visual changes, redness, or discharge. ENT: Denies otalgia and sore throat CARDIOVASCULAR: Denies chest pain, palpitations, or edema. RESPIRATORY: Reports cough but denies dyspnea. GASTROINTESTINAL: Denies abdominal pain, nausea, vomiting, or diarrhea. GENITOURINARY: Denies dysuria or hematuria. SKIN: Denies rash or itching. MUSCULOSKELETAL: Denies back pain, joint pain, but reports myalgia. NEUROLOGIC: Denies headache, numbness, or weakness. Pertinent positives per HPI. [facility] Past Medical History Medical History (Updated 11/29/24 @ 18:13 by Kathy Berman APRN) Healthy female adult Surgical History Surgical History No significant past surgical history Family History Family History Mother Diabetes mellitus Depression Schizophrenia Grandparent Diabetes mellitus Prostate carcinoma Father Diabetes mellitus Sibling H/O Romel thyroiditis Social History Social History Smoking status: Never smoker Second hand tobacco smoke exposure: No Alcohol intake: never Substance use: former Spiritual care concerns: No Comments At the time of my signature, I reviewed and agree with the nursing past medical, surgical, social, and family history. There is no relevant family history pertinent to the patient complaint. Exam Narrative: GENERAL: This is a well-nourished, well-developed patient, in no apparent distress. HEAD: normocephalic, atraumatic. EYES: Sclera clear/white. Vision is grossly intact. EARS: External ears normal, auditory canals clear and without drainage, TMs normal without perforation. Hearing grossly intact. NOSE: External nose normal with no obvious nasal discharge, nares without redness, no rhinorrhea. THROAT: Mucous membranes moist, posterior pharynx clear. NECK: Neck supple, non-tender without lymphadenopathy, masses or thyromegaly. CARDIOVASCULAR: Regular rate and rhythm without murmurs, gallops, or rubs. RESPIRATORY: Clear to auscultation. Breath sounds equal bilaterally. No wheezes, rales, or rhonchi. GASTROINTESTINAL: Abdomen soft, non-tender, nondistended. Bowel sounds are active. No hepato-splenomegaly, or palpable masses. No guarding. SKIN: warm, intact with no suspicious lesions or rash, good texture and turgor. NEURO: awake, alert, and oriented to person, place and time. There were no obvious focal neurologic abnormalities. Course Course Level of Care: Express Care Visit Vital Signs Vital signs: Reviewed MDM - URI/Sore Throat MDM Narrative Medical decision making narrative: Viral illness may last between 7-21 days; antibiotics do not cure viral illness and are NOT recommended at this time. Also, recommend symptomatic treatment includes: rest, fluids, and increase humidity of the air at home. Recommend Acetaminophen as directed on the bottle to reduce fever, pain, headache. Please schedule a follow-up visit with your personal physician for further evaluation and treatment within 3-5days. If your symptoms persist, change or worsen significantly before you can contact your personal physician then please, without delay, go to the emergency department for further evaluation. Differential Diagnosis Differential diagnosis: Likely upper respiratory infection, viral infection, influenza and other (covid) Lab Data Attestation: I reviewed the patient's lab results. Critical Care Time Critical Care Time Critical Care Time: No Discharge Plan Discharge Clinical Impression: Influenza A Patient Disposition: Home, Self-Care Condition: Stable Instructions: Influenza (ED) Additional Instructions: Viral illness may last between 7-21 days; antibiotics do not cure viral illness and are NOT recommended at this time. Also, recommend symptomatic treatment includes: rest, fluids, and increase humidity of the air at home. Recommend Acetaminophen as directed on the bottle to reduce fever, pain, headache. Please schedule a follow-up visit with your personal physician for further evaluation and treatment within 3-5days. If your symptoms persist, change or worsen significantly before you can contact your personal physician then please, without delay, go to the emergency department for further evaluation. Patient Language: Marshallese Prescriptions: New oseltamivir [Tamiflu] 75 mg capsule 75 mg PO Q12H 5 Days Qty: 10 0RF No Action lamotrigine 150 mg tablet 150 mg PO HS sertraline 100 mg tablet 100 mg PO HS ergocalciferol (vitamin D2) 1,250 mcg (50,000 unit) capsule 1,250 mcg PO WEEKLY Follow-up/Referrals: Vinicio,Yue Raymond APRN [Primary Care Provider] - Time of Disposition: 18:13
[2024-11-29 18:11] VITALS: BP 140/83; PULSE 105; RESP 16; TEMP 38.3; O2SAT 99
[2024-11-29 18:39] LABS: EDCOVIDSCREEN Negative (Negative); EDINFLUASCREEN Positive (Negative); EDINFLUBSCREEN Negative (Negative)
== END 2024-11-29 18:19 | disposition home or self-care (01) ==
PROVIDERS: Emergency Provider Nurse Practitioner; PCP Nurse Practitioner Family
DX: J10.1 Influenza due to other identified influenza virus with other respiratory manifestations (principal); Z20.822 Contact with and (suspected) exposure to COVID-19
CPT/HCPCS: 87426; 87804; 99213; G0463